=== PATIENT | female | born 1990 | race Two or more races ===

== ENCOUNTER 2021-10-07 18:35 | Emergency (ER) | payer MEDICAID, OTHER ==
[~2021-10-07] VITALS: Ht 157.5 cm; Wt 65.8 kg
[2021-10-07 18:48] VITALS: BP 122/79
== END 2021-10-07 22:58 | disposition left against medical advice (07) ==
LOC: ER 18:46
DX: J02.9 Acute pharyngitis, unspecified (principal); Z53.21 Procedure and treatment not carried out due to patient leaving prior to being seen by health care provider